=== PATIENT | male | born 1970 | race Caucasian/White ===

== ENCOUNTER → 2016-07-25 | Outpatient (CLI) | payer OTHER ==
[2014-09-12 20:09] VITALS: BP 126/89
--- NOTE | 2016-07-25 12:08 | KCIC ---
PROCEDURE MRI lumbar spine without contrast HISTORY Chronic back pain into the right side, right foot numbness TECHNIQUE Multiplanar, multi sequential non contrast MR imaging was performed of the lumbar spine. COMPARISON September 23, 2014 [facility] FINDINGS Lumbar vertebral body stature and AP alignment are maintained. There is again mild degenerative disc disease at L4-5 and L5-S1. There is no new significant marrow edema. There is now small inferior L5 Schmorl's node with associated degenerative change. Conus terminates normally at L1. L3-L4: Spinal canal and neural foramina are adequate. There is again negligible disc osteophyte complex in the right lateral recess. L4-5: Previously seen protrusion and extrusion in right lateral recess is no longer visualized. There is negligible disc osteophyte complex. Spinal canal and the neural foramina are adequate. L5-S1: There is negligible disc osteophyte complex. Spinal canal and neural foramina are adequate. IMPRESSION 1. Previously seen seen protrusion/extrusion at L4-5 is no longer visualized. There is mild degenerative disc disease at L4-5 and L5-S1, very mild spondylosis. There is no significant lumbar spinal stenosis or neural foramina compromise. Electronically signed by: Moises Becerra MD (Jul 25, 2016 12:07:12)
== END | disposition home or self-care (01) ==
LOC: KCIC MRI 10:57
PROVIDERS: ATTEND Physician Assistant
DX: M47.897 Other spondylosis, lumbosacral region (principal); M51.37 Other intervertebral disc degeneration, lumbosacral region; M25.78 Osteophyte, vertebrae
CPT/HCPCS: 72148